=== PATIENT | female | born 1945 | race Caucasian/White ===

== ENCOUNTER 2017-06-10 06:58 | Day surgery (SDC) | payer MEDICARE, OTHER ==
[~2017-06-10 06:58] MED LIST: SOD CHLORIDE 0.9% 1,000 ML IV
[2017-06-10] MEDS ORDERED: SUCCINYLCHOLINE CHLORIDE 100 MG/5 ML SYG IV (07:00)
[2017-06-10] MEDS: VANCOMYCIN 1 GM 250 ML IVPB (09:23)
[2017-06-10] MEDS ORDERED: MIDAZOLAM 1 MG/ML 2 ML INJ (09:29)
[2017-06-10] MEDS ORDERED: FENTAnyl 50 MCG/ML VIAL (09:29)
[2017-06-10] MEDS ORDERED: PHENYLephrine (100 MCG/ML) 5ML SYG (10:01)
[2017-06-10] MEDS ORDERED: BUPIVACAINE 0.5% (SDV) 30 ML INJ (10:03)
[2017-06-10] MEDS ORDERED: LIDOCAINE 1%/EPI 30 ML INJ (10:03)
[2017-06-10] MEDS ORDERED: ETOMIDATE 20 MG INJ (10:20)
[2017-06-10] MEDS ORDERED: LIDOCAINE 2% (SDV) 5 ML INJ (10:20)
[2017-06-10] MEDS ORDERED: PROPOFOL 20 ML (10:20)
[2017-06-10] MEDS ORDERED: ONDANSETRON 4 MG INJ (10:22)
[2017-06-10] MEDS: LIDOCAINE 1%/EPI 30 ML INJ INJ (10:22)
[2017-06-10] MEDS: BUPIVACAINE 0.5% 30 ML VIAL INJ (10:23)
== END 2017-06-10 12:06 | disposition home or self-care (01) ==
LOC: SDS 06:58
DX: K61.0 Anal abscess (principal); E11.9 Type 2 diabetes mellitus without complications; I10 Essential (primary) hypertension; E66.9 Obesity, unspecified; Z68.31 Body mass index [BMI] 31.0-31.9, adult
CPT/HCPCS: 46050; 82962